=== PATIENT | female | born 1955 | race Caucasian/White ===

== ENCOUNTER → 2020-08-05 | Outpatient (CLI) | payer OTHER ==
[~2020-08-05] MED LIST: FLEXERIL 10 MG10 MG PO; IBUPROFEN600 MG PO
[2020-08-05 12:43] LABS: HEMOGLOBIN 14.5 gm/dl (12.3-15.3); RED BLOOD COUNT 4.69 M/UL (4.00-5.10)
[2020-08-05 13:17] LABS: BUN/CREATININE RATIO 17 (0-10)
[2020-08-07 11:15] LABS: CHOLESTEROL, TOTAL 207 mg/dL (100-199); HDL SIZE 8.5 nm (>=9.2); HDL-C 40 mg/dL (>39); HDL-P (TOTAL) 27.3 umol/L (>=30.5); LARGE HDL-P 2.9 umol/L (>=4.8); LARGE VLDL-P 6.9 nmol/L (<=2.7); LDL SIZE 20.3 nm (>20.5); LDL SIZE 20.3 nm (>=20.8); LDL-C 132 mg/dL (0-99); LDL-P 1556 nmol/L (<1000); LP-IR SCORE 76 (<=45); SMALL LDL-P 865 nmol/L (<=527); TRIGLYCERIDES 195 mg/dL (0-149); VLDL SIZE 49.1 nm (<=46.6)
== END ==
LOC: LAB 10:50
PROVIDERS: Emergency Medicine
DX: I10 Essential (primary) hypertension (principal); Z79.899 Other long term (current) drug therapy; E78.2 Mixed hyperlipidemia; R53.83 Other fatigue
CPT/HCPCS: 36415; 80053; 80061; 83704; 84443; 84550; 85025

== ENCOUNTER → 2020-11-20 | Outpatient (CLI) | payer OTHER ==
[2020-11-20 10:25] LABS: BUN/CREATININE RATIO 12 (0-10)
== END ==
LOC: LAB 09:13
PROVIDERS: Emergency Medicine
DX: I10 Essential (primary) hypertension (principal); Z79.899 Other long term (current) drug therapy; E78.2 Mixed hyperlipidemia; R53.83 Other fatigue
CPT/HCPCS: 36415; 80053; 80061; 83704

== ENCOUNTER → 2021-02-12 | Outpatient (CLI) | payer OTHER ==
[2021-02-12 11:41] LABS: HEMOGLOBIN 14.1 gm/dl (12.3-15.3); RED BLOOD COUNT 4.58 M/UL (4.00-5.10); WHITE BLOOD COUNT 6.5 K/UL (4.5-11.0)
[2021-02-13 07:10] LABS: BILIRUBIN, TOTAL 0.6 mg/dL (0.0-1.2); CALCIUM, SERUM 9.4 mg/dL (8.7-10.3); CREATININE, SERUM 0.86 mg/dL (0.57-1.00); GLOBULIN, TOTAL 2.3 g/dL (1.5-4.5); POTASSIUM, SERUM 4.3 mmol/L (3.5-5.2); PROTEIN, TOTAL, SERUM 6.9 g/dL (6.0-8.5)
[2021-02-14 13:08] LABS: CHOLESTEROL, TOTAL 167 mg/dL (100-199); HDL SIZE 8.8 nm (>=9.2); HDL-C 42 mg/dL (>39); HDL-P (TOTAL) 30.4 umol/L (>=30.5); LARGE HDL-P 4.5 umol/L (>=4.8); LARGE VLDL-P 6.5 nmol/L (<=2.7); LDL SIZE 20.4 nm (>20.5); LDL SIZE 20.4 nm (>=20.8); LDL-C 95 mg/dL (0-99); LDL-P 1152 nmol/L (<1000); LP-IR SCORE 65 (<=45); SMALL LDL-P 514 nmol/L (<=527); TRIGLYCERIDES 175 mg/dL (0-149)
== END ==
LOC: LAB 11:04
PROVIDERS: Emergency Medicine
DX: Z00.00 Encounter for general adult medical examination without abnormal findings (principal); Z13.820 Encounter for screening for osteoporosis; I10 Essential (primary) hypertension; Z79.899 Other long term (current) drug therapy; E78.2 Mixed hyperlipidemia; R53.83 Other fatigue
CPT/HCPCS: 80053; 80061; 83704; 84550; 85025

== ENCOUNTER → 2021-10-09 | Day surgery (SDC) | payer OTHER ==
[~2021-10-09] MED LIST changes: +ASPIRIN81 MG PO; +DOTTI1 EACH TD; +LIPITOR TAB 1010 MG PO; +LOPRESSOR 50 MG50 MG PO; +PROGESTERONE200 MG PO
== END | disposition home or self-care (01) ==
LOC: OR 06:25
DX: Z12.11 Encounter for screening for malignant neoplasm of colon (principal); K57.30 Diverticulosis of large intestine without perforation or abscess without bleeding; K64.8 Other hemorrhoids; K64.4 Residual hemorrhoidal skin tags; K66.0 Peritoneal adhesions (postprocedural) (postinfection); K59.09 Other constipation; E66.9 Obesity, unspecified; I10 Essential (primary) hypertension; E78.00 Pure hypercholesterolemia, unspecified; Z68.30 Body mass index [BMI] 30.0-30.9, adult; Z79.82 Long term (current) use of aspirin; Z79.899 Other long term (current) drug therapy
CPT/HCPCS: J2704; J7040